=== PATIENT | female | born 1965 | race Caucasian/White ===

== ENCOUNTER 2016-06-09 12:17 | Outpatient (CLI) ==
[2015-02-20 11:05] VITALS: BMI 31.8
--- NOTE | 2016-06-09 13:08 | DI ---
Exam: Three x-rays of the lumbar spine. Reason for exam: Pain. Comparison: None available. FINDINGS: No acute fracture or listhesis. The vertebral body heights are well maintained. Degenerative disea se is seen with anterior osteophyte formation and intervertebral body disc space height narrowing at L5-S1. The remainder of the intervertebral body disc space heights in the lumbar spine are relativ severino well maintained. There is a normal appearing lumbar lordotic curve. The gallbladder has been re moved. Impression: 1. No acute fracture or listhesis. 2. Intervertebral body disc space height loss most notably at L5-S1 with mild degenerative disease.
== END 2016-06-09 12:18 | disposition home or self-care (01) ==
LOC: RAD 12:17
PROVIDERS: ATTEND Internal Medicine
DX: M54.42 Lumbago with sciatica, left side (principal)